=== PATIENT | male | born 1980 | race Caucasian/White ===

== ENCOUNTER 2022-06-22 11:53 | Inpatient (IN) | payer MEDICAID ==
[2022-06-22] VITALS: BP_SYST 155
[~2022-06-22] VITALS: Ht 170.2 cm; Wt 127.0 kg
[2022-06-22 12:15] VITALS: BP_SYST 158
--- NOTE | 2022-06-22 12:19 | NUR ---
Placed in room 1 . Placed on cardiac cath lab radiology technologist, blood pressure machine and pulse oximeter. To gown for exam. Side rails up. Report given to
[2022-06-22] MEDS ORDERED: LOSA25TA3 PO (12:27)
[2022-06-22] MEDS ORDERED: HYDR12.55 PO (12:27)
[2022-06-22] MEDS ORDERED: LIP20 PO (12:30)
[2022-06-22] MEDS ORDERED: LOSA100T3 PO (12:30)
[2022-06-22] MEDS ORDERED: METF-379 PO (12:30)
[2022-06-22] MEDS ORDERED: EMPA10TA PO (12:30)
--- NOTE | 2022-06-22 12:30 | NUR ---
SHERI Nguyen at bedside examining patient.
--- NOTE | 2022-06-22 12:31 | NUR ---
Medication reconciliation completed with information provided by PT . Any prior medication reconciliation on file was reviewed and corrected.
--- NOTE | 2022-06-22 12:32 | NUR ---
Assumed care of pt who came from home c/o chest pain and SOB that began this morning. Pt is maltese-speaking, A&Ox4, calm and cooperative. Denies medical hx, surgical hx. Patient denies drug or alcohol use and states he takes no medications. Pt states he does not have a primary care doctor and has not been seen by a medical provider in many years. VSS, patient appears in no acute distress at this time. Will provide care as ordered by provider.
[2022-06-22 13:27] LABS: BASOPHILS # (AUTO) 0.1 K/uL (0.0-0.2); BASOPHILS % (AUTO) 1.3 % (0.0-2.0); EOSINOPHILS # (AUTO) 0.1 K/uL (0.0-0.4); EOSINOPHILS % (AUTO) 1.1 % (0.0-4.0); HEMATOCRIT 49.9 % (36-54); LYMPHOCYTES # (AUTO) 1.7 K/uL (1.0-5.5); LYMPHOCYTES % (AUTO) 16.2 % (20.5-51.5); MEAN CORPUSCULAR VOLUME 86 fL (79.0-98.0); MONOCYTES # (AUTO) 0.5 K/uL (0.0-1.0); NEUTROPHILS # (AUTO) 7.9 K/uL (1.8-7.7); NEUTROPHILS % (AUTO) 76.4 % (40.0-70.0); PLATELET COUNT (AUTO) 251 K/uL (130-430); RED BLOOD CELL COUNT(AUTO) 5.82 MIL/uL (4.2-6.2); RED CELL DISTRIBUTION WIDTH 14.5 % (9.0-15.0); WHITE BLOOD COUNT (AUTO) 10.4 K/uL (4.8-10.8)
[2022-06-22 13:31] LABS: BARBITURATE, URINE NEGATIVE (NEG <=200); BENZODIAZEPINE, URINE NEGATIVE (NEG <=150); CANNABINOID, URINE NEGATIVE (NEG <=50); COCAINE, URINE NEGATIVE (NEG <=150); METHAMPHETAMINES SCREEN,URINE NEGATIVE (NEG <=500); OPIATE, URINE NEGATIVE (NEG <=100); PHENCYCLIDINE SCREEN,URINE NEGATIVE (NEG <=25); UR TRICYCLIC ANTIDEPRESSANTS NEGATIVE (NEG <=300); URINE AMPHETAMINE NEGATIVE (NEG <=500); URINE METHADONE NEGATIVE (NEG <=200); URINE OXYCODONE SCREEN NEGATIVE (NEG <=100); URINE PROPOXYPHENE SCREEN NEGATIVE (NEG <=300)
[2022-06-22 13:32] LABS: ANION GAP 8 (5-15); CALCIUM 9.2 mg/dL (8.4-11.0); CHLORIDE 97 mmol/L (98-107); CREATININE 1.96 mg/dL (0.55-1.30); GLUCOSE 313 mg/dL (70-99); POTASSIUM 3.3 mmol/L (3.5-5.1); UREA NITROGEN, BLOOD 25 mg/dL (8-21)
[2022-06-22 13:33] LABS: GFR AFRICAN AMERICAN 49 mL/min (>90)
[2022-06-22 13:40] LABS: ALANINE AMINOTRANSFERASE 36 U/L (12-78); ALBUMIN 3.1 g/dL (3.4-4.8); ASPARTATE AMINOTRANSFERASE 19 U/L (10-37); TOTAL BILIRUBIN 0.4 mg/dL (0.0-1.0)
[2022-06-22 13:41] LABS: ALCOHOL, BLOOD < 3 mg/dL (<10)
[2022-06-22 13:44] LABS: INR 3.4 (0.80-1.20)
[2022-06-22 13:48] LABS: PROTHROMBIN TIME 32.3 SECS (9.5-12.5)
--- NOTE | 2022-06-22 14:10 | NUR ---
Admit bed requested Patient will be admitted to care of . Admitted to TELE unit. Diagnosis CHEST PAIN Inpatient (Yes or No) Y Observation (Yes or No) N Orientation concerns or request close to nursing station (Yes or No) N Covid Status PENDING On vent or bipap N Isolation requirements N Needs a sitter N From Home (Yes or if No enter name of facility) Y Requires Dialysis (Yes or No) N Med Rec Completed (Yes of No) Y
[2022-06-22] MEDS ORDERED: PHYTONADIONE 10 MG/ML AMP IV ONE (14:30)
--- NOTE | 2022-06-22 15:40 | NUR ---
PT RESTING NO ACUTE DISTRESS NOTED.
[2022-06-22 17:10] VITALS: BP_SYST 155
--- NOTE | 2022-06-22 17:10 | NUR ---
Mr Rabago has been admitted to room 134-B. He has been noted to be both pleasant and cooperative. Admission questionnaire was completed with assistance of a registry staff member Meri. He has been assessed as indicated. He ambulates independently with a steady gait. BP elevated. No PRN meds available. He states that he has run out of BP meds. He may need assistance with acquiring medications. His is expecting a daughter in July He lost a daughter to stomach cancer 4 years ago. He is presently not working
--- NOTE | 2022-06-22 17:15 | NUR ---
Patient will be admitted to care of Dr. Escoto. Admitted to MST unit. Will go to room 134B. Belongings list completed. Complete and up to date summary report printed. SBAR report to be given at bedside to THOMAS Jean Baptiste, with opportunity for questions.
--- NOTE | 2022-06-22 17:17 | NUR ---
CONSULT CARDIOLOGY CHEST PAIN LEANDRA CHUA SENT A TEXT MESSAGE TO DR CHAPA
[2022-06-22] MEDS ORDERED: LORazepam 2 MG/ML VIAL IVP PRN (17:30)
[2022-06-22] MEDS ORDERED: GLUCOSE (DEXTROSE) ORAL GEL -Adults PO PRN (17:30)
[2022-06-22] MEDS ORDERED: HYDROcodone/ACETAMIN 5-325 MG TAB (NORCO/ VICODIN) PO PRN (17:30)
[2022-06-22] MEDS ORDERED: ACETAMINOPHEN 325 MG TABLET PO PRN ×2 (17:30→17:45)
[2022-06-22] MEDS ORDERED: D5W 1,000 ML IV PRN (17:30)
[2022-06-22] MEDS ORDERED: ONDANSETRON HCL 4 MG/2 ML VIAL IVP PRN (17:30)
[2022-06-22] MEDS ORDERED: HYDROcodone/ACETAMIN 10-325 MG TAB PO PRN (17:30)
[2022-06-22] MEDS ORDERED: NALOXONE HCL 0.4 MG/ML AMP (NARCAN) IVP PRN ×2 (17:30)
[2022-06-22] MEDS ORDERED: DEXTROSE 50% JECT 50 ML DISP.SYRIN IVP PRN (17:30)
--- NOTE | 2022-06-22 17:58 | NUR ---
CONSULT NEPHROLOGY URSULA DR KEANE [phone] DR CARTER EEO OFFICER S/[facility] EXCHANGE
--- NOTE | 2022-06-22 18:00 | NUR ---
CONSULT ENDOCRINOLOGY DM DR CARRASCO,MARVIN CALL DR CARRASCO'S CELL LEFT VM
--- NOTE | 2022-06-22 19:41 | NUR ---
Dr Cagle called related to renal consult. Labs reviewed she will see the patient in AM.
--- NOTE | 2022-06-22 19:44 | NUR ---
Handoff given to Geni
[2022-06-22 20:00] VITALS: BP_SYST 166
--- NOTE | 2022-06-22 20:00 | NUR ---
Denies any chest pain , blood pressure elevated no headache nor dizziness, safety/fall precaution initiated , telemetry NSR, needs attended,
[2022-06-22] MEDS: INSULIN REGULAR, HUMAN 100 UNITS/ML, 3 ML VIAL (humuLIN R) SUBCUT PRN (21:01)
[2022-06-22] MEDS: NORMAL SALINE 5 ML DISP.SYRIN IVF SCH ×2 (21:02→22:00)
[2022-06-22] MEDS: ATORVASTATIN 20 MG TABLET PO SCH (21:02)
[2022-06-22] MEDS ORDERED: hydrALAZINE HCL 25 MG TABLET PO PRN (22:30)
[2022-06-23] VITALS: BP_SYST 155
--- NOTE | 2022-06-23 | NUR ---
Blood pressure much controlled after hydralazine denies any headache no chest pain, encouraged to increase oral fluid intake verbalized understanding.
[2022-06-23] MEDS: NORMAL SALINE 5 ML DISP.SYRIN IVF SCH ×4 (06:00→20:38)
[2022-06-23] MEDS: INSULIN REGULAR, HUMAN 100 UNITS/ML, 3 ML VIAL (humuLIN R) SUBCUT PRN ×3 (06:34→18:33)
[2022-06-23 07:52] LABS: BASOPHILS # (AUTO) 0.1 K/uL (0.0-0.2); BASOPHILS % (AUTO) 0.6 % (0.0-2.0); EOSINOPHILS # (AUTO) 0.1 K/uL (0.0-0.4); EOSINOPHILS % (AUTO) 1.5 % (0.0-4.0); HEMATOCRIT 50.4 % (36-54); LYMPHOCYTES % (AUTO) 22.6 % (20.5-51.5); MEAN CORPUSCULAR VOLUME 86 fL (79.0-98.0); MONOCYTES # (AUTO) 0.8 K/uL (0.0-1.0); MONOCYTES % (AUTO) 9.4 % (1.7-9.3); NEUTROPHILS # (AUTO) 5.8 K/uL (1.8-7.7); NEUTROPHILS % (AUTO) 65.9 % (40.0-70.0); PLATELET COUNT (AUTO) 259 K/uL (130-430); RED BLOOD CELL COUNT(AUTO) 5.89 MIL/uL (4.2-6.2); RED CELL DISTRIBUTION WIDTH 14.6 % (9.0-15.0); WHITE BLOOD COUNT (AUTO) 8.7 K/uL (4.8-10.8)
[2022-06-23 08:00] VITALS: BP_SYST 162
--- NOTE | 2022-06-23 08:00 | NUR ---
Mr Rabago has been assessed as indicated. He continues to denies pain. Some medication doses have been adjusted. Blood sugars are checked AC/HS. BP remains elevated. He is resting quietly with no s/s of distress or discomfort
[2022-06-23 08:47] LABS: ALBUMIN 3.1 g/dL (3.4-4.8); CALCIUM 8.7 mg/dL (8.4-11.0); CREATININE 1.04 mg/dL (0.55-1.30); PHOSPHORUS 3.9 mg/dL (2.7-4.5); THYROID STIMULATING HORMONE 1.51 uIu/mL (0.36-3.74); TOTAL BILIRUBIN 0.4 mg/dL (0.0-1.0)
[2022-06-23] MEDS: HYDROCHLOROTHIAZIDE 12.5 MG CAPSULE (HCTZ) PO SCH (08:48)
[2022-06-23] MEDS: LOSARTAN POTASSIUM 50 MG TABLET (COZAAR) PO SCH (08:48)
--- NOTE | 2022-06-23 10:05 | NUR ---
CONSULT: NEURO ALOC DR. SLAUGHTER [phone] S/W: ABHIHSEK, OFFICE STAFF
[2022-06-23] MEDS ORDERED: POTASSIUM CHLORIDE 20 MEQ TAB.PRT.SR PO ONE (10:45)
[2022-06-23] MEDS ORDERED: METOPROLOL TARTRATE 25 MG TABLET PO ONE (11:00)
[2022-06-23 12:00] VITALS: BP_SYST 147
--- NOTE | 2022-06-23 12:00 | NUR ---
Mr Castro ambulates in the halls with no assistance. He remains both pleasant and cooperative. He continues to deny pain. He has bathroom privileges. BP is trending down. He has been made aware of the plan for a stress test tomorrow. The process was explained with a Mohawk language video. He expressed his understanding. He remains SR on tele. He is resting quietly with no s/s of distress or discomfort
[2022-06-23] MEDS: INSULIN GLARGINE 100 UNITS/ML, 10 ML VIAL SUBCUT SCH (13:13)
[2022-06-23 16:00] VITALS: BP_SYST 144
[2022-06-23] MEDS: metFORMIN HCL 500 MG TABLET PO SCH (18:30)
--- NOTE | 2022-06-23 19:06 | NUR ---
Mr Mitchell has had blood sugar levels that require insulin this shift. He remains pleasant and cooperative. He states that he is bored. He ambulates in the halls frequently. He denies pain. BP is still trending down. At this time he is sitting at the bedside having dinner with no sighs or symptoms of distress or discomfort
--- NOTE | 2022-06-23 19:15 | NUR ---
Handpff has been given to Precious ponce
--- NOTE | 2022-06-23 19:30 | NUR ---
Opening note Received report from day shift. Pt is awake lying in bed. No s/s of respiratory distress. Breathing even and unlabored on RA. IV site intact and patent saline lock. Fall and safety precautions in place with bed in lowest position, bed alarm on, and call light within reach
[2022-06-23 20:00] VITALS: BP_SYST 145
[2022-06-23] MEDS: METOPROLOL TARTRATE 25 MG TABLET PO SCH (20:34)
[2022-06-23] MEDS: ATORVASTATIN 20 MG TABLET PO SCH (20:34)
[2022-06-23 23:15] LABS: BILIRUBIN,URINE NEGATIVE (NEGATIVE); BLOOD, URINE NEGATIVE (NEGATIVE); CLARITY/URINE CLEAR (CLEAR); COLOR,URINE YELLOW (YELLOW); GLUCOSE,URINE 3+ (NEGATIVE); KETONES,URINE NEGATIVE (NEGATIVE); LEUKOCYTE ESTERASE ,URINE NEGATIVE (NEGATIVE); NITRITE, URINE NEGATIVE (NEGATIVE); PROTEIN URINE 2+ (NEGATIVE); UROBILINOGEN,URINE 0.2 (0.2-1.0)
[2022-06-23 23:41] LABS: BACTERIA,URINE RARE /HPF (None Seen); MUCUS,URINE None Seen /LPF (None Seen); RBC,URINE NONE SEEN /HPF (0-3); WBC,URINE 0-3 /HPF (0-3)
--- NOTE | 2022-06-24 00:15 | NUR ---
Rounds Pt lying in bed, eyes closed. No s/s of acute distress. Fall and safety checks in place
[2022-06-24] MEDS ORDERED: INSU100V9 SQ ×2 (10:00)
[2022-06-24] MEDS ORDERED: GLIP5TAB26 PO ×2 (10:00)
[2022-06-24 10:01] LABS: ALBUMIN 2.8 g/dL (3.4-4.8); CALCIUM 8.7 mg/dL (8.4-11.0); CREATININE 1.04 mg/dL (0.55-1.30); TOTAL BILIRUBIN 0.5 mg/dL (0.0-1.0)
[2022-06-24 10:24] LABS: BASOPHILS # (AUTO) 0.1 K/uL (0.0-0.2); BASOPHILS % (AUTO) 0.7 % (0.0-2.0); EOSINOPHILS # (AUTO) 0.2 K/uL (0.0-0.4); EOSINOPHILS % (AUTO) 1.9 % (0.0-4.0); LYMPHOCYTES # (AUTO) 1.9 K/uL (1.0-5.5); LYMPHOCYTES % (AUTO) 20.6 % (20.5-51.5); MEAN CORPUSCULAR VOLUME 86 fL (79.0-98.0); MONOCYTES # (AUTO) 0.9 K/uL (0.0-1.0); MONOCYTES % (AUTO) 10.2 % (1.7-9.3); NEUTROPHILS % (AUTO) 66.6 % (40.0-70.0); PLATELET COUNT (AUTO) 253 K/uL (130-430); RED BLOOD CELL COUNT(AUTO) 5.91 MIL/uL (4.2-6.2); RED CELL DISTRIBUTION WIDTH 14.5 % (9.0-15.0); WHITE BLOOD COUNT (AUTO) 9.1 K/uL (4.8-10.8)
[2022-06-24 11:24] LABS: POTASSIUM 2.9 mmol/L (3.5-5.1)
[2022-06-24] MEDS: metFORMIN HCL 500 MG TABLET PO SCH ×3 (12:35→19:02)
[2022-06-24] MEDS: LOSARTAN POTASSIUM 50 MG TABLET (COZAAR) PO SCH (12:35)
[2022-06-24] MEDS: HYDROCHLOROTHIAZIDE 12.5 MG CAPSULE (HCTZ) PO SCH (12:35)
[2022-06-24] MEDS: METOPROLOL TARTRATE 25 MG TABLET PO SCH ×2 (12:36→20:00)
[2022-06-24] MEDS: INSULIN GLARGINE 100 UNITS/ML, 10 ML VIAL SUBCUT SCH (12:40)
[2022-06-24] MEDS: INSULIN REGULAR, HUMAN 100 UNITS/ML, 3 ML VIAL (humuLIN R) SUBCUT PRN ×2 (12:41→19:05)
[2022-06-24] MEDS ORDERED: POTASSIUM CHLORIDE 20 MEQ TAB.PRT.SR PO ONE (14:30)
--- NOTE | 2022-06-24 18:00 | NUR ---
Mr Rabago has been assessed as indicated. He continues to deny pain. He completed a treadmill stress test and will need a Lexiscan tomorrow he is aware and compliant with the plan to do so. His DM treatment plan has been adjusted by the rn family practice. He has been provided with diabetes education videos. He is aware that he will be NPO after MN
[2022-06-24] MEDS: NORMAL SALINE 5 ML DISP.SYRIN IVF SCH ×2 (19:02→21:41)
[2022-06-24 20:00] VITALS: BP_SYST 156
[2022-06-24] MEDS: ATORVASTATIN 20 MG TABLET PO SCH (20:00)
--- NOTE | 2022-06-24 20:56 | NUR ---
Patient up ambulating the room without difficulty. No acute distress noted. Will continue to monitor.
[2022-06-25] VITALS: BP_SYST 151
[2022-06-25] MEDS: NORMAL SALINE 5 ML DISP.SYRIN IVF SCH ×3 (04:31→21:15)
--- NOTE | 2022-06-25 07:30 | NUR ---
OPENING NOTES: PATIENT IS RESTING IN BED QUIETLY. AAOX4 ABLE TO MAKE NEEDS KNOWN. NO ADDITIONAL DISTRESS NOTED. EXPLAINED POC AND PATIENT VERBALIZED UNDERSTANDING. SCHEDULE TODAY FOR LEXISCAN AT 10 AM. NPO AT THIS TIME. STABLE CONDITION.
[2022-06-25 08:00] VITALS: BP_SYST 157
--- NOTE | 2022-06-25 08:00 | NUR ---
IV DISLODGE TO THE RW. IV CATH INTACT WHEN REMOVED. NO BLEEDING NOTED. COVER SITE WITH GAUZE AND SECURE WITH TAPE.
[2022-06-25 08:43] LABS: CALCIUM 8.7 mg/dL (8.4-11.0); CREATININE 1.15 mg/dL (0.55-1.30); PHOSPHORUS 3.6 mg/dL (2.7-4.5); POTASSIUM 3.6 mmol/L (3.5-5.1)
[2022-06-25 09:09] LABS: BASOPHILS # (AUTO) 0.1 K/uL (0.0-0.2); BASOPHILS % (AUTO) 0.8 % (0.0-2.0); EOSINOPHILS # (AUTO) 0.2 K/uL (0.0-0.4); EOSINOPHILS % (AUTO) 1.6 % (0.0-4.0); HEMATOCRIT 52.9 % (36-54); LYMPHOCYTES # (AUTO) 2.1 K/uL (1.0-5.5); LYMPHOCYTES % (AUTO) 21.4 % (20.5-51.5); MEAN CORPUSCULAR VOLUME 87 fL (79.0-98.0); MONOCYTES # (AUTO) 0.9 K/uL (0.0-1.0); MONOCYTES % (AUTO) 9.8 % (1.7-9.3); NEUTROPHILS # (AUTO) 6.4 K/uL (1.8-7.7); NEUTROPHILS % (AUTO) 66.4 % (40.0-70.0); RED BLOOD CELL COUNT(AUTO) 6.11 MIL/uL (4.2-6.2); RED CELL DISTRIBUTION WIDTH 14.6 % (9.0-15.0); WHITE BLOOD COUNT (AUTO) 9.6 K/uL (4.8-10.8)
[2022-06-25] MEDS ORDERED: REGADENOSON 0.4 MG/5 ML SYRINGE IVP ONE (10:00)
--- NOTE | 2022-06-25 10:00 | NUR ---
LEXISCAN: LEFT THE UNIT IN A STABLE CONDITION TO [facility].
[2022-06-25] MEDS: HYDROCHLOROTHIAZIDE 12.5 MG CAPSULE (HCTZ) PO SCH (11:27)
[2022-06-25] MEDS: LOSARTAN POTASSIUM 50 MG TABLET (COZAAR) PO SCH (11:27)
[2022-06-25] MEDS: METOPROLOL TARTRATE 25 MG TABLET PO SCH ×2 (11:28→21:20)
[2022-06-25] MEDS: metFORMIN HCL 500 MG TABLET PO SCH ×3 (11:29→18:17)
[2022-06-25] MEDS: INSULIN REGULAR, HUMAN 100 UNITS/ML, 3 ML VIAL (humuLIN R) SUBCUT PRN ×2 (11:38→21:25)
[2022-06-25] MEDS: INSULIN GLARGINE 100 UNITS/ML, 10 ML VIAL SUBCUT SCH (11:43)
[2022-06-25 12:29] VITALS: BP_SYST 152
--- NOTE | 2022-06-25 14:24 | NUR ---
NOT CLEARED FOR DC HOME: READ LEXISCAN IMPRESSION TO Danny HANNAH PATIENT IS NOT CLEARED FOR DC TODAY. MADE PATIENT AWARE.
[2022-06-25 14:38] LABS: PLATELET COUNT (AUTO) 264 K/uL (130-430)
[2022-06-25 16:00] VITALS: BP_SYST 154
--- NOTE | 2022-06-25 16:23 | NUR ---
Spoke w/ Dr Danny Escoto. Patient had abnormal Lexiscan. He will schedule for Angiogram at [facility] at let me know when the procedure is scheduled.
--- NOTE | 2022-06-25 18:30 | NUR ---
CLOSING NOTES: PATIENT IS SITTING UP IN THE CHAIR EATING HIS DINNER. NO ADDITIONAL DISTRESS NOTED. ALL NEEDS MET. STABLE CONDITION AT THIS TIME.
[2022-06-25 20:00] VITALS: BP_SYST 160
[2022-06-25] MEDS: ATORVASTATIN 20 MG TABLET PO SCH (21:10)
[2022-06-26] VITALS: BP_SYST 130
[2022-06-26] MEDS: NORMAL SALINE 5 ML DISP.SYRIN IVF SCH (05:34)
[2022-06-26 07:04] LABS: CREATININE 1.03 mg/dL (0.55-1.30); POTASSIUM 3.2 mmol/L (3.5-5.1)
[2022-06-26 07:11] LABS: BASOPHILS % (AUTO) 0.3 % (0.0-2.0); EOSINOPHILS # (AUTO) 0.2 K/uL (0.0-0.4); HEMATOCRIT 52.3 % (36-54); LYMPHOCYTES % (AUTO) 21.1 % (20.5-51.5); MEAN CORPUSCULAR VOLUME 88 fL (79.0-98.0); MONOCYTES # (AUTO) 0.9 K/uL (0.0-1.0); MONOCYTES % (AUTO) 9.4 % (1.7-9.3); NEUTROPHILS # (AUTO) 6.4 K/uL (1.8-7.7); NEUTROPHILS % (AUTO) 67.2 % (40.0-70.0); PLATELET COUNT (AUTO) 266 K/uL (130-430); RED BLOOD CELL COUNT(AUTO) 5.96 MIL/uL (4.2-6.2); RED CELL DISTRIBUTION WIDTH 14.6 % (9.0-15.0); WHITE BLOOD COUNT (AUTO) 9.5 K/uL (4.8-10.8)
[2022-06-26 07:35] VITALS: BP_SYST 154
--- NOTE | 2022-06-26 07:35 | NUR ---
OPEN NOTE Received report from Nightshift nurse.Patient laying in bed resting. A/O x4, Romansh speaker. No signs of pain, SOB, or distress. Patient has LFA 20G on SL. Patient is on bedrest with Bathroom Privileges. Call light is within reach, all needs met, bed is locked in lowest position. Will continue to monitor.
[2022-06-26] MEDS: LOSARTAN POTASSIUM 50 MG TABLET (COZAAR) PO SCH (08:11)
[2022-06-26] MEDS: metFORMIN HCL 500 MG TABLET PO SCH (08:11)
[2022-06-26] MEDS: METOPROLOL TARTRATE 25 MG TABLET PO SCH (08:11)
[2022-06-26] MEDS: HYDROCHLOROTHIAZIDE 12.5 MG CAPSULE (HCTZ) PO SCH (08:12)
[2022-06-26] MEDS: INSULIN GLARGINE 100 UNITS/ML, 10 ML VIAL SUBCUT SCH (08:14)
[2022-06-26 11:16] VITALS: BP_SYST 156
--- NOTE | 2022-06-26 12:00 | NUR ---
Patient Rounds Patient resting in chair. No signs of pain, SOB, or distress. Call light is within reach, all needs met, bed is locked in lowest position. Will continue to monitor.
[2022-06-26 12:05] VITALS: BP_SYST 150
--- NOTE | 2022-06-26 12:50 | NUR ---
D/C Patient Patient given medication reconciliation form and D/C instructions. Exit Care provided. Patient verbalized understanding. MD discussed with patient the results and treatment provided. Ambulatory with steady gait for discharge to home. Patient in stable condition, ID band removed. IV catheter removed, intact and dressing applied, no active bleeding. Patient educated on pain management and medications to take at home. All belongings sent with patient.
[2022-06-26] MEDS ORDERED: GLIP10TA21 PO (12:57)
[2022-06-26] MEDS ORDERED: POTASSIUM CHLORIDE 20 MEQ TAB.PRT.SR PO ONE (16:00)
== END 2022-06-26 12:50 | disposition home or self-care (01) | DRG 199 ==
LOC: SED 11:53 → STU 14:05
PROVIDERS: ADMIT Preventive Medicine Preventive Medicine/Occupational Environmental Medicine; ATTEND Preventive Medicine Preventive Medicine/Occupational Environmental Medicine
PROC: 4A02XM4 Measurement of Cardiac Total Activity, External Approach (ICD-10-PCS; principal; 2022-06-25)
PROC: 3E073KZ Introduction of Other Diagnostic Substance into Coronary Artery, Percutaneous Approach (ICD-10-PCS; 2022-06-25)
DX: I16.0 Hypertensive urgency (principal); N17.0 Acute kidney failure with tubular necrosis; E44.0 Moderate protein-calorie malnutrition; R07.89 Other chest pain; E88.09 Other disorders of plasma-protein metabolism, not elsewhere classified; I13.10 Hypertensive heart and chronic kidney disease without heart failure, with stage 1 through stage 4 chronic kidney disease, or unspecified chronic kidney disease; E87.1 Hypo-osmolality and hyponatremia; E11.21 Type 2 diabetes mellitus with diabetic nephropathy; E11.22 Type 2 diabetes mellitus with diabetic chronic kidney disease; Z20.822 Contact with and (suspected) exposure to COVID-19; E11.65 Type 2 diabetes mellitus with hyperglycemia; E66.9 Obesity, unspecified; E78.5 Hyperlipidemia, unspecified; G47.00 Insomnia, unspecified; E87.6 Hypokalemia; N18.9 Chronic kidney disease, unspecified; Z68.41 Body mass index [BMI] 40.0-44.9, adult; Z91.013 Allergy to seafood; Z79.01 Long term (current) use of anticoagulants; Z79.4 Long term (current) use of insulin; Z79.84 Long term (current) use of oral hypoglycemic drugs; Z79.899 Other long term (current) drug therapy; Z91.14 Patient's other noncompliance with medication regimen
CPT/HCPCS: 36415; 71045; 76770; 80048; 80053; 80061; 80307; 81000; 82306; 82962; 83036; 83735; 83880; 84100; 84443; 84484; 85025; 85379; 85610-TC; 85730-TC; 93005; 93017; 93306; 96374; 99285; A9500; G0378; G0482; J1815; J2785; J3430